=== PATIENT | female | born 1965 | race Caucasian/White ===

== ENCOUNTER → 2020-05-07 09:28 | Outpatient (CLI) | payer BC, MEDICAID, SELFPAY ==
--- NOTE | 2020-05-07 09:40 | MR_ITS ---
PROCEDURE: MR LUMBAR SPINE WO CON CLINICAL INDICATION: LOW BACK PAIN Numbness from LT leg from knee down. LBP. LT hip locks up and has pain. [id number]. No trauma. COMPARISON: No exams were available for comparison TECHNIQUE: Standard multiplanar multiecho sequences are performed without contrast. 3-D MIP and myelographic images are also rendered and reviewed FINDINGS: There is normal alignment. The spinal cord ends at the L2 level. There is mild wedging of L2 which appears chronic with loss of height anteriorly of approximately 15 percent. A Schmorl's node is present in the superior endplate of L2 on the left. L2-L3: Unremarkable. L3-L4: Minimal bulging disc with mild facet and ligamentum hypertrophy. L4-5: Unremarkable L5-S1: Bulging disc with a small broad-based central disc protrusion along with facet and ligamentum hypertrophy. There is an annular fissure posteriorly. There is mild bilateral foraminal narrowing slightly greater on the right IMPRESSION: 1. Mild mild chronic wedging of L2 with superior Schmorl's node and mild kyphosis at L1-L2 2. Minimal bulging disc at L3-L4 3. Bulging disc at L5-S1 with a small broad-based central disc protrusion along with facet and ligamentum hypertrophy. There is an annular fissure posteriorly. There is mild bilateral foraminal narrowing slightly greater on the right 4. No disc herniation or canal stenosis Dictated by: Rasheed Keating MD 05/08/2020 12:56 Electronically signed by Rasheed Keating MD in [place] 05/08/2020 12:56
== END ==
PROVIDERS: PCP Internal Medicine Addiction Medicine; Visit Provider Internal Medicine Addiction Medicine
DX: S32.000A Wedge compression fracture of unspecified lumbar vertebra, initial encounter for closed fracture (principal)
CPT/HCPCS: 72148; 76376

== ENCOUNTER → 2020-05-09 11:26 | Outpatient (POV) | payer BC, MEDICAID, SELFPAY ==
[2020-05-09 11:56] VITALS: BP 121/80; PULSE 85; RESP 18; TEMP 36.8; O2SAT 96; BMI 24.5
--- NOTE | 2020-05-09 12:25 | HMH.PMCON ---
Assessment and Plan (1) Degenerative joint disease (DJD) of lumbar spine Current visit: Yes Status: Chronic Category: Medical Code(s): M47.816 - Spondylosis without myelopathy or radiculopathy, lumbar region (2) Lumbar radiculopathy Current visit: Yes Status: Chronic Category: Medical Code(s): M54.16 - Radiculopathy, lumbar region - Assessment and plan all Dx Assessment and Plan for all problems:: We will schedule the patient for a lumbar epidural steroid injection at L4-L5. She is not on any anticoagulation therapy. She is tried physical therapy along with a continued home stretching program and anti-inflammatories. We will also start her on Flexeril 10 mg tablet p.o. 3 times daily. She will continue with ice and heat therapies along with a continued home stretching program. We will see her back in the clinic after her injection to reassess her symptoms. The patient and I specifically discussed risk factors for COVID19. These risks include, but are not limited to age greater than 60, heart or lung disease, diabetes, immunosuppression, and travel. We also discussed NSAIDs may worsen COVID19 infection or symptoms. Patient should not use NSAIDs to treat COVID19 signs or symptoms. Patient was also informed that any type of corticosteroid of any form (oral or injection) will decrease the patient's immune system response and may increase the likelihood of COVID19 infection and symptoms. Given the risks and benefits of the injection, the patient would like to proceed with the injection. She has been instructed to contact the clinic if she has any concerns before her next appointment. Dr. Larkin has reviewed this note and agrees with this plan of care. This note was dictated using voice recognition software and make contain errors or omissions. HPI - Data of Consult Consult date: 05/09/20 Requesting Physician: Shilpa Roman APRN Primary Care Provider: Referral Provider, MD - Consult Narrative Reason for consult: Low back pain, bilateral leg numbness History of present illness: Ms. Santos is a 55 year old female who presents today for consultation for low back pain with radiation into her bilateral lower extremities. Patient says she does have numbness and tingling in her lower extremities. Patient says that her pain is been ongoing for approximately 10 years. She did have a compression fracture in her lumbar spine approximately 10 years ago and says her pain has continued since then. She is unsure where her compression fracture was located. She says that she did undergo lumbar epidural steroid injections as well as bilateral hip injections approximately 4 years ago with a prior pain management clinic. Patient has relocated to this area since then. She says that her pain is worse with standing and walking. She says that she has tried ice and heat therapy as well as lidocaine patches. She has not gotten relief. She did try physical therapy for greater than 6 weeks with no relief. Patient was given steroid injections approximately 1 month ago by her primary care provider. Patient says she did not get any relief. She rates her pain a 9 out of 10 today. CC: Shilpa Roman APRN [facility] History I have reviewed the patient's past medical history: Yes Medical History: Reports:: Hypertension Denies:: Cancer, Diabetes Mellitus Type 1, Diabetes Mellitus Type 2, MRSA *Have you ever received a pneumonia vaccine?: Yes *Have you received a flu vaccine this season?: Yes Other Surgeries: Yes: Hysterectomy-Partial, Other (ganglion cyst, carpal tunnel) Amputation: No Fractures: Yes (compression fracture lower spine) - *Social History Smoking Status: Former smoker #Yrs smoked (if former smoker): 42 Alcohol Intake: never Alcohol Intake Frequency:: 3 or more drinks per day (2 beers, 2 shots of whiskey) *Occupational Status:: other Housing: house Household Members: other *Travel in the last 8 weeks: None Family Hx:: Unable to
== END ==
PROVIDERS: Visit Provider Clinical Nurse Specialist Family Health
DX: M47.26 Other spondylosis with radiculopathy, lumbar region (principal)
CPT/HCPCS: 99202

== ENCOUNTER → 2020-06-03 13:02 | Outpatient (POV) | payer BC, SELFPAY ==
[2020-06-03 13:36] VITALS: BP 132/88; PULSE 89; RESP 18; TEMP 36.6; O2SAT 98; BMI 24.2
--- NOTE | 2020-06-10 08:28 | HMH.PAINSOAP ---
[facility] Pain Management SOAP Note Subjective:: Pleasant 55-year-old white female who presents for follow-up after denial from her insurance company in regards to her lumbar epidural steroid injection. Patient is having continual low back pain radiating into her leg. Is affecting her daily activity. 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 Patient rates her pain a 10 out of 10. She is visibly uncomfortable. Patient has a positive straight leg raise test on the right side. Patient has not had any injective therapy. She has done stretching programs and physical therapy however this has not yielded any benefit. Patient does have a old compression fracture in her lumbar spine. Most of her pain is in her lower back and down her legs. Patient was on medication for something unrelated but has not been on any oral narcotics since then. Patient has tried and failed anti-inflammatories. She is tried and failed all therapies over 6 months. Patient is not on any anticoagulation therapy. ROS General: no recent weight change, no fever, no sleep disturbances Respiratory: no cough, no shortness of air, no recurring pulmonary infections Cardiovascular/Peripheral Vascular: No chest pain, No palpitations, no edema, no shortness of breath. Gastrointestinal: no new onset incontinence, normal bowel movements reported Genitourinary: no new onset incontinence Musculoskeletal: Back pain, leg pain Psychiatric: normal mood/ affect Neurological: [denies new onset weakness in extremities], [denies new onset balance issues] Objective:: Physical Exam General: Alert and oriented x3, no acute distress, pleasant and cooperative, [on room air] Lungs: Resps E/U, Symmetrical chest expansion, Eyes: PERRL Musculoskeletal: Flexion and extension of lumbar spine somewhat guarded secondary to pain, deep tendon reflexes normal, strength in upper and lower extremities [5/5], [abnormal gait noted] Neurological: speech clear, 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 Patient does have pathology noted on her MRI. Patient has tried and failed over 6 weeks of physical therapy. She is tried and failed over 3 months of anti-inflammatories and other medications. Patient is unable to take gabapentin. Patient and I had a long discussion about plan of care. She would like to continue to work as long as possible. I will follow-up with the patient after her injection reassess her symptoms at that time she has been instructed to call the office if she has any issues prior to her next appointment. Dr. Larkin has reviewed this note and agrees with this plan of care. This note was dictated using voice recognition software and may contain errors or omissions [facility] History I have reviewed the patient's past medical history: Yes Medical History: Reports:: Hypertension Denies:: Cancer, Diabetes Mellitus Type 1, Diabetes Mellitus Type 2, MRSA *Have you ever received a pneumonia vaccine?: Yes *Have you received a flu vaccine this season?: Yes Other Surgeries: Yes: Hysterectomy-Partial, Other (ganglion cyst, carpal tunnel) Amputation: No Fractures: Yes (compression fracture lower spine) - *Social History Smoking Status: Former smoker #Yrs smoked (if former smoker): 42 Alcohol Intake: never Alcohol Intake Frequency:: 3 or more drinks per day (2 beers, 2 shots of whiskey) *Occupational Status:: other Housing: house Household Members: other *Travel in the last 8 weeks: None Family Hx:: Unable to obtain
== END ==
PROVIDERS: PCP Internal Medicine Addiction Medicine; Visit Provider Clinical Nurse Specialist Family Health
DX: M51.16 Intervertebral disc disorders with radiculopathy, lumbar region (principal)
CPT/HCPCS: 99212

== ENCOUNTER 2020-06-21 10:22 | Day surgery (SDC) | payer BC, SELFPAY ==
[2020-06-21 10:38] VITALS: BP 101/53; PULSE 62; RESP 18; TEMP 35.9; O2SAT 98; BMI 24.3
[2020-06-21 11:38] VITALS: BP 98/68; PULSE 64; RESP 18; O2SAT 99
[2020-06-21 11:39] VITALS: BP 101/62; PULSE 74; RESP 18; O2SAT 99
--- NOTE | 2020-06-21 11:46 | HMH.PMPROC ---
- Procedure Date: 06/21/20 Time: 11:46 Anesthesiologist:: Destin Larkin MD Complications:: None Pre-procedure Diagnosis:: Degenerative disc disease of lumbar spine with lumbar radiculopathy symptoms Post-procedure Diagnosis:: Same Indications for Procedure:: This patient is a pleasant 55-year-old white female who we are treating for low back pain with lumbar radiculopathy symptoms. She does have increasing pain in her back rating down both legs. We will do lumbar epidural steroid injection today to help her with her pain symptoms. Procedure Details:: Lumbar epidural steroid injection under fluoroscopy Informed consent was obtained and the risk and benefits of the procedure was explained to the patient. The patient was taken to the procedure room. The patient was placed prone on the procedure table. The patient was prepped and draped in sterile fashion. C-arm fluoroscopy was used to view the lumbar spine. Skin and subcutaneous tissues were anesthetized using lidocaine. I placed an 18-gauge epidural needle and advanced into the L4-L5 interspace using fluoroscopic guidance and [id number] to air. After confirmation of needle placement in the epidural space with dye I injected 2 mL of lidocaine 1.5% with Depo-Medrol 80 mg. Patient tolerated the procedure well with no complications. Plan and Disposition:: We will follow-up with her in 2 weeks. Will reevaluate symptoms at that time.
[2020-06-21 11:49] VITALS: BP 98/62; PULSE 64; RESP 20; O2SAT 98
== END 2020-06-21 11:50 | disposition home or self-care (01) ==
LOC: SC.PAINP 10:25
PROVIDERS: PCP Internal Medicine Addiction Medicine; Visit Provider Anesthesiology
DX: M51.16 Intervertebral disc disorders with radiculopathy, lumbar region (principal); I10 Essential (primary) hypertension; J44.9 Chronic obstructive pulmonary disease, unspecified; M47.896 Other spondylosis, lumbar region; Z87.891 Personal history of nicotine dependence; Z90.711 Acquired absence of uterus with remaining cervical stump; Z88.0 Allergy status to penicillin; Z88.1 Allergy status to other antibiotic agents; Z91.041 Radiographic dye allergy status; Z91.038 Other insect allergy status; Z79.899 Other long term (current) drug therapy
CPT/HCPCS: 62323; J1040